=== PATIENT | female | born 2000 | race Two or more races ===

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

== ENCOUNTER 2021-07-29 17:44 | Emergency (ER) | payer OTHER ==
[~2021-07-29] VITALS: Ht 162.6 cm; Wt 61.1 kg
[~2021-07-29 17:44] MED LIST: ONDA4TAB7 PO
[2021-07-29 19:20] VITALS: BP 116/80
--- NOTE | 2021-07-29 19:36 | PHYS DOC ---
Past History Past Medical History: No Pertinent History Past Surgical History: No Surgical History Alcohol Use: None Adult General Chief Complaint Chief Complaint: HEADACHE HPI HPI Patient is a 21-year-old female who presents with headache that started earlier in the day, his whole head, dull and achy in nature, 5 out of 10, with mild photophobia but no phonophobia, nausea or vomiting. Denies any recent traumas, travels, fevers, cold/flu/COVID symptoms, abdominal pain, nausea, vomiting, diarrhea. States he works at the [employer] and there is always somebody they're ill but she doesn't think she has any symptoms. States she took some cold medicine earlier in the day because she thought it had Tylenol in it but it only helped a little. States she does get a few headaches a month but has never been diagnosed with migraines. Review of Systems Review of Systems Review of systems otherwise unremarkable except noted in HPI Allergies Allergies Allergies Coded Allergies Type Severity Reaction Last Updated Verified No Known Drug Allergies 12/07/20 No Physical Exam Physical Exam Constitutional: Well developed, well nourished, no acute distress, non-toxic appearance. [] HENT: Normocephalic, atraumatic, bilateral external ears normal, oropharynx moist, no oral exudates, nose normal. [] Eyes: PERRLA, EOMI, conjunctiva normal, no discharge. [] Neck: Normal range of motion, no tenderness, supple, no stridor. [] Cardiovascular:Heart rate regular rhythm, no murmur [] Lungs & Thorax: Bilateral breath sounds clear to auscultation [] Abdomen: Bowel sounds normal, soft, no tenderness, no masses, no pulsatile masses. [] Skin: Warm, dry, no erythema, no rash. [] Back: No tenderness, no CVA tenderness. [] Extremities: No tenderness, no cyanosis, no clubbing, ROM intact, no edema. [] Neurologic: Alert and oriented X 3, normal motor function, normal sensory function, no focal deficits noted. [] Psychologic: Affect normal, judgement normal, mood normal. [] EKG EKG [] Radiology/Procedures Radiology/Procedures [] Heart Score C/O Chest Pain: No Risk Factors: Risk Factors: DM, Current or recent (<one month) smoker, HTN, HLP, family h istory of CAD, obesity. Risk Scores: Risk Factors: DM, Current or recent (<one month) smoker, HTN, HLP, family history of CAD, obesity. Course & Med Decision Making Course & Med Decision Making Patient is a 21-year-old female presents with headache Vital signs nonconcerning. Physical exam noted above. Patient currently on m enstrual period and states she could be and does need to be tested before getting medication. Given headache cocktail. On reassessment patient stated symptoms had resolved and she was ready be discharged home. Given symptom control recommendations for home. Advised follow-up with primary care physician. Return precautions to the ED. Patient grateful, verbalized understanding and agreed with plan of discharge Dragon Disclaimer Dragon Disclaimer This electronic medical record was generated, in whole or in part, using a voice recognition dictation system. Departure Departure: Impression: Primary Impression: Headache Disposition: HOME / SELF CARE / HOMELESS Condition: GOOD Referrals: PAOLA DUKE MD (PCP) Patient Instructions: General Headache Without Cause Additional Instructions: Fever coming into the emergency department tonight and allowing us to take care of you. Please read the attached information carefully to go back over some of the things we discussed, as we discussed, you can use 1000 mg of Tylenol every 8 hours daily, 800 mg of ibuprofen 8 hours daily, and 50 mg of Benadryl every 6 hours daily as needed for headache. As we discussed, try Your Headache As Soon As You Feel It Coming on to Get Ahead of It. Please Follow-Up This Again with Your Primary Care Physician to Set up a Follow-Up Visit. Please Come Back with New or concerning Symptoms As Discussed RYAN LEMUS MD Jul 29, 2021 19:36
[2021-07-29] MEDS ORDERED: ONDANSETRON ODT 4 MG TAB.RAPDIS PO ONE (20:00)
[2021-07-29] MEDS ORDERED: KETOROLAC 60 MG/2 ML VIAL. IM ONE (20:00)
[2021-07-29] MEDS ORDERED: PROCHLORPERAZINE 10 MG/2 ML VIAL. IM ONE (20:00)
[2021-07-29] MEDS ORDERED: diphenhydrAMINE HCL 25 MG CAPSULE PO ONE (20:00)
== END 2021-07-29 20:25 | disposition home or self-care (01) ==
LOC: ER 17:44
DX: R51.9 Headache, unspecified (principal); H53.143 Visual discomfort, bilateral
CPT/HCPCS: 96372; 99284; J0780; J1885; Q0162; Q0163

== ENCOUNTER 2021-07-30 16:19 | Emergency (ER) | payer OTHER ==
[~2021-07-30] VITALS: Ht 162.6 cm; Wt 60.0 kg
[2021-07-30 17:48] VITALS: BP 109/70
--- NOTE | 2021-07-30 18:03 | PHYS DOC ---
Past History Past Medical History: No Pertinent History (RAMÍREZDANIEL COWART VOLUNTEER ASSISTANT) Past Surgical History: No Surgical History (SANDRODANIEL Contreras VOLUNTEER ASSISTANT) Alcohol Use: None (RENEADANIEL Susi VOLUNTEER ASSISTANT) Adult General Chief Complaint Chief Complaint: CONGESTION HPI HPI Patient is a 21-year-old female patient presented to the ED today complaining of nasal congestion that began yesterday and requesting a COVID test. Patient denies any coughing, denies any fever. (DANIEL MEIER VOLUNTEER ASSISTANT) Review of Systems Review of Systems Constitutional: Denies fever or chills [] Eyes: Denies change in visual acuity, redness, or eye pain [] HENT: Reports nasal congestion Respiratory: Denies cough or shortness of breath [] Cardiovascular: No additional information not addressed in HPI [] GI: Denies abdominal pain, nausea, vomiting, bloody stools or diarrhea [] : Denies dysuria or hematuria [] Musculoskeletal: Denies back pain or joint pain [] Integument: Denies rash or skin lesions [] Neurologic: Denies headache, focal weakness or sensory changes [] All other systems were reviewed and found to be within normal limits, except as documented in this note. (DANIEL MEIER Susi VOLUNTEER ASSISTANT) Allergies Allergies Allergies Coded Allergies Type Severity Reaction Last Updated Verified No Known Drug Allergies 07/29/21 No (RENEADANIEL Susi VOLUNTEER ASSISTANT) Physical Exam Physical Exam Constitutional: Well developed, well nourished, no acute distress, non-toxic appearance. [] HENT: Normocephalic, atraumatic, bilateral external ears normal, oropharynx moist, no oral exudates, nose normal. [] Eyes: PERRLA, EOMI, conjunctiva normal, no discharge. [] Neck: Normal range of motion, no tenderness, supple, no stridor. [] Cardiovascular:Heart rate regular rhythm, no murmur [] Lungs & Thorax: Bilateral breath sounds clear to auscultation [] Abdomen: Bowel sounds normal, soft, no tenderness, no masses, no pulsatile masses. [] Skin: Warm, dry, no erythema, no rash. [] Back: No tenderness, no CVA tenderness. [] Extremities: No tenderness, no cyanosis, no clubbing, ROM intact, no edema. [] Neurologic: Alert and oriented X 3, normal motor function, normal sensory function, no focal deficits noted. [] Psychologic: Affect normal, judgement normal, mood normal. [] (DANIEL MEIER APRN) Current Patient Data Vital Signs Vital Signs Date Time Temp Pulse Resp B/P (MAP) Pulse Ox O2 Delivery O2 Flow Rate FiO2 07/30/21 17:48 98.4 74 18 109/70 (83) 100 Room Air (DANIEL MEIER APRN) EKG EKG [] (DANIEL MEIER APRN) Radiology/Procedures Radiology/Procedures [] (DANIEL MEIER APRN) Heart Score C/O Chest Pain: N/A Risk Factors: Risk Factors: DM, Current or recent (<one month) smoker, HTN, HLP, family history of CAD, obesity. Risk Scores: Risk Factors: DM, Current or recent (<one month) smoker, HTN, HLP, family history of CAD, obesity. (DANIEL MEIER APRN) Course & Med Decision Making Course & Med Decision Making Pertinent Labs and Imaging studies reviewed. (See chart for details) This is a 21-year-old female patient presenting to the ED today with nasal congestion and requesting COVID test. She was tested for COVID-19 and we will call her when results are available. Supportive care measures (DANIEL MEIER APRN) Course & Med Decision Making Did not see or evaluate patient. Did not discuss patient with TIMBER SURVEYOR. Agree with TIMBER SURVEYOR's work-up and disposition per note (RYNA LEMUS MD) Dragon Disclaimer Dragon Disclaimer This electronic medical record was generated, in whole or in part, using a voice recognition dictation system. (DANIEL MEIER APRN) Departure Departure: Impression: Primary Impression: URI (upper respiratory infection) Additional Impression: Person under investigation for COVID-19 Disposition: HOME / SELF CARE / HOMELESS Condition: STABLE Referrals: PAOLA DUKE MD (PCP) follow up in one week Patient Instructions: Upper Respiratory Infection, Adult, [id number] Additional Instructions: You were tested for COVID-19. Quarantine yourself until results are back. Rest, push fluids, take Tylenol or Motrin for pain or fever. Follow-up with your doctor in 1 week Problem Qualifiers Primary Impression: URI (upper respiratory infection) URI type: unspecified URI Qualified Codes: J06.9 - Acute upper respiratory infection, unspecified DANIEL MEIER APRN Jul 30, 2021 18:03 RYAN LEMUS MD Jul 30, 2021 18:21
== END 2021-07-30 18:50 | disposition home or self-care (01) ==
LOC: ER 16:19
DX: U07.1 COVID-19 (principal); J06.9 Acute upper respiratory infection, unspecified
CPT/HCPCS: 87426; 99283